=== PATIENT | male | born 1985 | race African-American/Black ===

== ENCOUNTER 2017-06-08 11:14 | Emergency (ER) | payer OTHER ==
[2017-06-08 11:28] VITALS: TEMP 98; BMI 33.5
--- NOTE | 2017-06-08 11:33 | PDOC ---
Attending Attestation - Resident Resident Name: JosyMandi - ED Attending Attestation I have performed the following: I have examined & evaluated the patient, The case was reviewed & discussed with the resident, I agree w/resident's findings & plan, Exceptions are as noted - HPI HPI: 06/08/17 11:27 This is a 32 yo RHD m presenting to the ER s/p indoor javier diving injury Pt feels that his left shoulder is dislocated again Pt states that he has had multiple shoulder dislocations, has required operative repair in the past - Physicial Exam PE: 06/08/17 13:58 Left shoulder dislocation Hand warm Brisk cap refil Sensation in tact Motor intact sensation in tact over the deltoid 2+ RP, UP - Medical Decision Making 06/08/17 11:33 Possible shoulder dislocation Will do xray Will give pain medications Will reduce if dislocated Will discharge to home 06/08/17 13:21 Left shoulder reduced Will send for post reduction film 06/08/17 13:57 Shoulder reduced Pt can be discharged to home Follow up with Ortho 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
--- NOTE | 2017-06-08 11:46 | PDOC ---
History of Present Illness - General Stated Complaint: LEFT SHOULDER DISLOCATION Time Seen by Provider: 06/08/17 11:22 History Source: Patient, EMS, Spouse Exam Limitations: No Limitations - History of Present Illness Initial Comments: This is a 32 yom with h/o multiple left shoulder dislocations (most recent was less than a year ago) who presents BIBA for shoulder dislocation. He states that while indoor skydiving just [employer], he was in the activated skydiving tunnel, in the air skydiving, when his left shoulder dislocated. He fell a few feet to the ground and landed on his left side, but denies hitting his head, losing consciousness, or sustaining any more injuries. This has happened to him about 10 times since he was 14 years old, but for the past several times he has been able to relocate it himself. He was unable to do so this morning and therefore called 911. He notes 10/10 pain and also decreased ROM to the left shoulder, but denies any numbness, tingling, weakness, or other symptoms. Past History - Past Medical History Allergies/Adverse Reactions: Allergies Allergy/AdvReac Type Severity Reaction Status Date / Time No Known Allergies Allergy Verified 06/08/17 11:52 Home Medications: Ambulatory Orders NK [No Known Home Medication] 06/08/17 Review of Systems - Review of Systems Able to Perform ROS?: Yes Constitutional: No: Chills, Fever, Unexplained wgt Loss HEENTM: No: Nose Congestion, Throat Pain Respiratory: No: Cough, Shortness of Breath Cardiac (ROS): No: Chest Pain, Palpitations ABD/GI: No: Constipated, Diarrhea, Nausea, Vomiting : No: Burning, Dysuria Musculoskeletal: Yes: Joint Pain, Other (joint dislocation (left shoulder)). No : Back Pain, Neck Pain Integumentary: No: Bruising, Rash Neurological: No: Headache, Numbness, Tingling, Weakness, Dizziness Endocrine: No: Unexplained Weight Gain, Unexplained Weight Loss *Physical Exam - Physical Exam General Appearance: Yes: Nourished, Appropriately Dressed, Moderate Distress, Other (well-appearing and fit male, conversive but appears very uncomfortable, obvious joint disruption of the left shoulder, splinting left arm in right hand) HEENT: positive: EOMI (grossly), Normal Voice, Hearing Grossly Normal. negative : Scleral Icterus (R), Scleral Icterus (L), Nasal Congestion Neck: positive: Trachea midline, Supple. negative: Tender, Rigid Respiratory/Chest: positive: Lungs Clear, Normal Breath Sounds. negative: Respiratory Distress, Crackles, Rhonchi, Stridor, Wheezing Cardiovascular: positive: Regular Rhythm, Regular Rate. negative: Murmur Comments:: radial and ulnar pulses 2+ and symmetric bilaterally Gastrointestinal/Abdominal: positive: Soft. negative: Tender, Organomegaly, Pulsatile Mass, Guarding Musculoskeletal: positive: Normal Inspection. negative: Decreased Range of Motion, Vertebral Tenderness Extremity: positive: Normal Capillary Refill, Normal Inspection, Normal Range of Motion, Other (mild trapezius and deltoid muscle spasm on the left, mild acromion prominence, flattening of shoulder, left arm held in slight abduction and internal rotation supported by contralateral hand and forearm). negative: Tender, Cyanosis Integumentary: positive: Normal Color, Dry, Warm. 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 negative: Numbness, Sensory Deficit Procedures - Joint Reduction Left Joint Reduction Site: left: Shoulder Pre-Procedure NV Exam: normal Conscious Sedation: No Reduction Attempts: 1 Post-Procedure NV Exam: normal Complications: No Post Joint Reduction Film: joint reduced Immobilized: Yes (sling) Medical Decision Making - Medical Decision Making 32 yom with frequent shoulder dislocation *DC/Admit/Observation/Transfer Diagnosis at time of Disposition: Dislocation, shoulder, anterior Qualifiers: Encounter type: initial encounter Laterality: left Qualified Code(s): S43.015A - Anterior dislocation of left humerus, initial encounter - Discharge Dispostion Disposition: HOME Condition at time of disposition: Stable Admit: No - Patient Instructions Printed Discharge Instructions: DI for Shoulder Dislocation Additional Instructions: You were seen in the ER for a left shoulder dislocation. We were able to control your pain with morphine and get x-rays of the shoulder which confirmed that it was dislocated but there were no fractures. We were able to fix the dislocation as well. Please follow up with your PCP and get a referral to see an orthopedist. You may always return to the ER for any new or worsening symptoms, or for repeat dislocation.
[2017-06-08] MEDS ORDERED: morphine CARPU-JECT 4 MG/1 ML DISP.SYRIN ONE ×2 (11:59→13:10)
[2017-06-08] MEDS: morphine CARPU-JECT 4 MG/1 ML DISP.SYRIN IVPUSH ONE ×2 (12:03→12:07)
[2017-06-08] MEDS ORDERED: morphine CARPU-JECT 4 MG/1 ML DISP.SYRIN IVPUSH ONE (13:05)
[2017-06-08 13:29] VITALS: BP 128/72; PULSE 84
== END 2017-06-08 14:07 | disposition home or self-care (01) ==
LOC: JER 11:14
PROC: 0RSKXZZ Reposition Left Shoulder Joint, External Approach (ICD-10-PCS; principal; 2017-06-08)
PROC: 3E033NZ Introduction of Analgesics, Hypnotics, Sedatives into Peripheral Vein, Percutaneous Approach (ICD-10-PCS; 2017-06-08)
PROC: 0RSKXZZ Reposition Left Shoulder Joint, External Approach (ICD-10-PCS; 2017-06-08)
DX: S43.015A Anterior dislocation of left humerus, initial encounter (principal); X50.9XXA Other and unspecified overexertion or strenuous movements or postures, initial encounter; Y93.59 Activity, other involving other sports and athletics played individually; Y92.39 Other specified sports and athletic area as the place of occurrence of the external cause; Y99.8 Other external cause status
CPT/HCPCS: 73030-TC-LT; 73060-TC-LT; 99283-25